=== PATIENT | male | born 1980 | race African-American/Black ===

== ENCOUNTER 2025-06-22 04:55 | Inpatient (IN) | payer OTHER ==
[~2025-06-22] VITALS: Ht 193 cm; Wt 90.5 kg
[2025-06-22] VITALS (7 sets, daily range): BP systolic 119–158; BP diastolic 79–90; PULSE 55–71; RESP 18–20; TEMP 36.1–36.6; O2SAT 98–100
[2025-06-22] MEDS ORDERED: ACETAMINOPHEN 325MG TABLET PO ONE (05:45)
[2025-06-22] MEDS: MORPHINE SULFATE 4 MG/ML INJ (FOR IV/IM USE) IV ONE ×2 (06:41→07:50)
[2025-06-22 07:02] LABS: BASOPHILS % 0.8 % (0.0-2.0); EOSINOPHILS % 1.3 % (0.0-5.0); HEMATOCRIT. 40.2 % (42.0-52.0); HEMOGLOBIN. 13.8 g/dL (14.0-18.0); LYMPHOCYTES % 31.6 % (20.0-50.0); MEAN PLATELET VOLUME 8.7 fl (7.4-10.4); MONOCYTES % 14.2 % (2.0-8.0); NEUTROPHILS % 52.1 % (40.0-76.0); PLATELET 204 x1000/uL (130-400); RED BLOOD CELL COUNT 3.71 mill/uL (4.7-6.1); RED CELL DISTRIBUTION WIDTH 14.4 % (11.6-14.6)
[2025-06-22 07:28] LABS: CREATININE 1.1 mg/dL (0.6-1.3); UREA NITROGEN BLOOD 9 mg/dL (9-23)
[2025-06-22 07:29] LABS: TROPONIN I HIGH SENSITIVITY 7 ng/L (3.0-53)
[2025-06-22] MEDS ORDERED: ONDANSETRON HCL 4MG/2ML INJ IV PRN (09:45)
[2025-06-22] MEDS: ENOXAPARIN 100MG/ML SYR SUBCUT SCH ×2 (10:23→21:22)
[2025-06-22] MEDS ORDERED: APIX5TAB PO (10:27)
[2025-06-22] MEDS: ACETAMINOPHEN 325MG TABLET PO PRN (11:07)
[2025-06-22] MEDS ORDERED: IOHEXOL-350 100 ML BOTTLE ONE (12:15)
[2025-06-22] MEDS ORDERED: NALOXONE HCL 0.4MG/ML VIAL IV PRN (13:45)
[2025-06-22] MEDS: HYDROCODONE/ACETAMINOPHEN 5/325MG TABLET PO PRN (14:46)
[2025-06-22] MEDS: LOSARTAN 25 MG TABLET PO SCH (17:08)
[2025-06-22 17:51] LABS: TROPONIN I HIGH SENSITIVITY 9 ng/L (3.0-53)
[2025-06-22 17:57] LABS: INR 1.1
[2025-06-23] VITALS: BP 120/86; PULSE 66; RESP 19; TEMP 36.9; O2SAT 100
[2025-06-23 04:00] VITALS: BP 117/73; PULSE 71; RESP 19; TEMP 36.3; O2SAT 100
[2025-06-23 08:00] VITALS: BP 126/73; PULSE 68; RESP 18; TEMP 36.2; O2SAT 97
[2025-06-23] MEDS ORDERED: APIX5TAB MT (11:58)
[2025-06-23 12:00] VITALS: BP 138/88; PULSE 68; RESP 18; TEMP 36.1; O2SAT 100
[2025-06-23 16:00] VITALS: BP 119/72; PULSE 71; RESP 18; TEMP 36.2; O2SAT 97
[2025-06-23 20:00] VITALS: BP 121/68; PULSE 67; RESP 18; TEMP 36.5; O2SAT 99
[2025-06-24] VITALS: BP 123/82; PULSE 58; RESP 18; TEMP 37.2; O2SAT 100
[2025-06-24 04:00] VITALS: BP 128/80; PULSE 55; RESP 18; TEMP 36.6; O2SAT 100
[2025-06-24 08:00] VITALS: BP 132/83; PULSE 69; RESP 18; TEMP 36.2; O2SAT 98
[2025-06-24 10:42] VITALS: BP 132/83; PULSE 69; RESP 18; TEMP 97.2
[2025-06-24 12:00] VITALS: BP 116/79; PULSE 102; RESP 18; TEMP 36.1; O2SAT 98
== END 2025-06-24 12:00 | disposition home or self-care (01) | DRG 299 ==
LOC: ER 04:55 → 6WST 07:51 → EDBEDREQ 07:55 → EDBEDREQTM 07:55
PROVIDERS: ADMIT Internal Medicine; ATTEND Internal Medicine
DX: I82.431 Acute embolism and thrombosis of right popliteal vein (principal); I26.99 Other pulmonary embolism without acute cor pulmonale; Z79.01 Long term (current) use of anticoagulants; Z59.00 Homelessness unspecified; F17.290 Nicotine dependence, other tobacco product, uncomplicated; Z86.718 Personal history of other venous thrombosis and embolism
CPT/HCPCS: 36415; 71045; 71275; 80048; 83880; 84484; 85025; 85379; 93005; 93306; 93971; 96374; 96376; 99285; J1650; J2270; Q9967